=== PATIENT | male | born 1965 | race American Indian/Alaskan Native ===

== ENCOUNTER 2017-04-26 12:30 | Emergency (ER) | payer OTHER ==
[2017-04-26] MEDS ORDERED: MOTRIN PO ONE (15:26)
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
[2017-04-26 22:39] VITALS: BP 120/82
== END 2017-04-26 20:30 | disposition home or self-care (01) ==
LOC: ED 12:30
DX: M54.2 Cervicalgia (principal); M54.9 Dorsalgia, unspecified
CPT/HCPCS: 72040; 72070; 99283

== ENCOUNTER 2021-12-30 21:46 | Emergency (ER) | payer OTHER ==
[2021-12-31 04:50] VITALS: BP 132/84
== END 2021-12-31 04:50 | disposition home or self-care (01) ==
LOC: ED 21:46
DX: M54.2 Cervicalgia (principal); Z53.21 Procedure and treatment not carried out due to patient leaving prior to being seen by health care provider
CPT/HCPCS: 99282

== ENCOUNTER 2022-04-15 23:13 | Emergency (ER) | payer SELFPAY ==
[2022-04-16 00:14] VITALS: BP 123/85
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
== END 2022-04-16 08:25 | disposition home or self-care (01) ==
LOC: ED 23:13
DX: S16.1XXA Strain of muscle, fascia and tendon at neck level, initial encounter (principal); V89.2XXA Person injured in unspecified motor-vehicle accident, traffic, initial encounter; Y93.89 Activity, other specified; Y92.89 Other specified places as the place of occurrence of the external cause; Y99.8 Other external cause status
CPT/HCPCS: 72040; 99283